=== PATIENT | male | born 1950 | race Caucasian/White ===

== ENCOUNTER 2022-08-10 12:47 | Emergency (ER) | payer OTHER ==
[~2022-08-10] VITALS: Ht 185.4 cm; Wt 81.7 kg
[2022-08-10] MEDS ORDERED: PLAVIX75 MG PO (13:30)
[2022-08-10] MEDS ORDERED: METOPROLOL TART25 MG PO (13:30)
[2022-08-10] MEDS ORDERED: ATORVASTATIN CA20 MG PO (13:30)
[2022-08-10 14:34] LABS: BASOPHILS ABSOLUTE AUTO 0.06 K/mm3 (0.00-0.23); BASOPHILS PERCENT AUTO 1 % (0-2); EOSINOPHILS ABSOLUTE AUTO 0.09 K/mm3 (0.00-0.68); EOSINOPHILS PERCENT AUTO 1 % (0-6); Hematocrit 42.2 % (37.0-53.0); Hemoglobin 15.2 g/dL (13.5-17.5); IMMATURE GRAN ABSOLUTE AUTO 0.02 K/mm3 (0.00-0.10); IMMATURE GRAN PERCENT AUTO 0 % (0-1); LYMPHOCYTES ABSOLUTE AUTO 1.42 K/mm3 (0.84-5.20); LYMPHOCYTES PERCENT AUTO 22 % (21-46); MONOCYTES ABSOLUTE AUTO 0.66 K/mm3 (0.16-1.47); MONOCYTES PERCENT AUTO 10 % (4-13); Mean Corpuscular HGB 33.7 pg (26.0-34.0); Mean Corpuscular Volume 94 fL (80-100); Mean Platelet Volume 9.7 fL (9.1-12.4); NEUTROPHILS ABSOLUTE AUTO 4.32 K/mm3 (1.96-9.15); NEUTROPHILS PERCENT AUTO 66 % (41-73); Platelet Count 271 K/mm3 (150-400); RDW Standard Deviation 41.6 fL (35.1-46.3); Red Blood Cell Count 4.51 M/mm3 (4.30-5.90); White Blood Cell Count 6.57 K/mm3 (4.00-11.30)
[2022-08-10 14:41] LABS: Albumin, Blood 4.1 g/dL (3.4-5.0); Albumin/Globulin Ratio 1.2 (0.8-1.8); Bilirubin, Total 0.5 mg/dL (0.1-1.0); Bun/Creatinine Ratio 23.5 (12.0-20.0); Calcium, Blood 9.1 mg/dL (8.5-10.1); Creatinine, Blood 0.94 mg/dL (0.60-1.20); Globulin, Blood 3.5 g/dL (2.2-4.0); Magnesium, Blood 2.3 mg/dL (1.6-2.4); Phosphorus, Blood 2.6 mg/dL (2.5-4.9); Potassium, Blood 3.9 mmol/L (3.5-5.5); Total Protein, Blood 7.6 g/dL (6.4-8.2)
[2022-08-10] MEDS ORDERED: ULTRA-LIGHT RO1 EACH XX (16:45)
== END 2022-08-10 16:57 | disposition home or self-care (01) ==
LOC: ER 12:47
PROVIDERS: Physician Assistant
DX: R53.1 Weakness (principal); R26.89 Other abnormalities of gait and mobility; Z88.1 Allergy status to other antibiotic agents; Z79.899 Other long term (current) drug therapy
CPT/HCPCS: 36415; 70450; 80053; 83735; 84100; 85025

== ENCOUNTER 2022-08-12 04:40 | Emergency (ER) | payer OTHER ==
[~2022-08-12] VITALS: Ht 185.4 cm; Wt 79.4 kg
[~2022-08-12 04:40] MED LIST: ATORVASTATIN CA20 MG PO; METOPROLOL TART25 MG PO; PLAVIX75 MG PO; ULTRA-LIGHT RO1 EACH XX
[2022-08-12] MEDS ORDERED: Percocet 5-3251 EACH PO (06:25)
== END 2022-08-12 06:53 | disposition home or self-care (01) ==
LOC: ER 04:40
DX: S22.31XA Fracture of one rib, right side, initial encounter for closed fracture (principal); E78.5 Hyperlipidemia, unspecified; W01.0XXA Fall on same level from slipping, tripping and stumbling without subsequent striking against object, initial encounter; Z88.8 Allergy status to other drugs, medicaments and biological substances; Z79.899 Other long term (current) drug therapy
CPT/HCPCS: 71101; A9270